=== PATIENT | female | born 1935 | race Caucasian/White ===

== ENCOUNTER → 2016-07-28 | Outpatient (CLI) | payer MEDICARE ==
[2016-07-28 10:19] LABS: HEMOGLOBIN 12.8 gm/dl (12.3-15.3); RED BLOOD COUNT 4.29 M/UL (4.00-5.10); WHITE BLOOD COUNT 6.6 K/UL (4.5-11.0)
[2016-07-28 10:40] LABS: BUN/CREATININE RATIO 21 (0-10)
== END ==
LOC: LAB 09:30
PROVIDERS: Internal Medicine
DX: R53.81 Other malaise (principal); R53.83 Other fatigue; E78.5 Hyperlipidemia, unspecified; I10 Essential (primary) hypertension; E55.9 Vitamin D deficiency, unspecified; M81.0 Age-related osteoporosis without current pathological fracture
CPT/HCPCS: 36415; 80053; 80061; 84439; 84443; 85027

== ENCOUNTER → 2016-11-22 | Outpatient (CLI) | payer MEDICARE | LOC: LAB 08:39 | DX: E78.5 Hyperlipidemia, unspecified (principal) | CPT/HCPCS: 36415; 80061 ==

== ENCOUNTER 2020-11-14 08:43 | Emergency (ER) | payer OTHER ==
[~2020-11-14 08:43] MED LIST: ALDACTONE25 MG PO; ASPIRIN CHEWABL81 MG PO; COREG6.25 MG PO; LIPITOR TAB 1010 MG PO; OMEPRAZOLE20 MG PO; PRINIVIL5 MG PO
[2020-11-14 09:56] LABS: HEMOGLOBIN 12.3 gm/dl (12.3-15.3); RED BLOOD COUNT 4.02 M/UL (4.00-5.10); WHITE BLOOD COUNT 7.5 K/UL (4.5-11.0)
[2020-11-14 10:18] LABS: BUN/CREATININE RATIO 23 (0-10)
[2020-11-14] MEDS ORDERED: ZITHROMAX250 MG PO (11:00)
== END 2020-11-14 11:16 | disposition home or self-care (01) ==
LOC: ER1 08:43
PROVIDERS: Physician Assistant
DX: I10 Essential (primary) hypertension (principal); R91.8 Other nonspecific abnormal finding of lung field; Z79.899 Other long term (current) drug therapy
CPT/HCPCS: 70450; 71045; 80053; 82550; 82553; 83874; 84484; 85025; 93005; 99284

== ENCOUNTER → 2021-01-19 | Outpatient (CLI) | payer OTHER ==
[~2021-01-19] MED LIST changes: +ZITHROMAX250 MG PO
== END ==
LOC: KOH-I 09:28
DX: R93.89 Abnormal findings on diagnostic imaging of other specified body structures (principal)
CPT/HCPCS: 71046

== ENCOUNTER → 2021-08-03 | Outpatient (CLI) | payer OTHER ==
[2021-08-04 11:16] LABS: CREATININE, URINE 52.6 mg/dL (Not Estab.); MICROALB/CREAT RATIO <6 (0-29)
== END ==
LOC: US 07-28 13:30
PROVIDERS: Internal Medicine Nephrology
DX: N18.32 Chronic kidney disease, stage 3b (principal); N13.30 Unspecified hydronephrosis
CPT/HCPCS: 36415; 80048; 81001; 82043; 82570

== ENCOUNTER → 2021-08-18 | Outpatient (CLI) | payer OTHER | LOC: KOH-I 08:00 | DX: N18.30 Chronic kidney disease, stage 3 unspecified (principal) | CPT/HCPCS: 74176 ==

== ENCOUNTER 2021-10-20 14:18 | Emergency (ER) | payer OTHER ==
[2021-10-20 15:56] LABS: HEMOGLOBIN 12.6 gm/dl (12.3-15.3); RED BLOOD COUNT 4.18 M/UL (4.00-5.10); WHITE BLOOD COUNT 9.3 K/UL (4.5-11.0)
== END 2021-10-20 20:25 | disposition home or self-care (01) ==
LOC: ER1 14:18
DX: I11.9 Hypertensive heart disease without heart failure (principal); E78.5 Hyperlipidemia, unspecified; I25.2 Old myocardial infarction; Z79.82 Long term (current) use of aspirin; Z79.899 Other long term (current) drug therapy
CPT/HCPCS: 80053; 81001; 82550; 82553; 84484; 85025; 93005; 99283

== ENCOUNTER → 2021-10-28 | Outpatient (CLI) | payer OTHER ==
[2021-10-29 10:18] LABS: CREATININE, URINE 86.1 mg/dL (Not Estab.)
== END ==
LOC: LAB 12:18
PROVIDERS: Internal Medicine Nephrology
DX: N18.31 Chronic kidney disease, stage 3a (principal)
CPT/HCPCS: 36415; 80048; 82043; 82570

== ENCOUNTER 2021-11-11 12:11 | Emergency (ER) | payer OTHER ==
[2021-11-11 12:59] LABS: HEMOGLOBIN 12.8 gm/dl (12.3-15.3); RED BLOOD COUNT 4.25 M/UL (4.00-5.10); WHITE BLOOD COUNT 6.8 K/UL (4.5-11.0)
[2021-11-11] MEDS ORDERED: DOXYCYCLINE MO100 MG PO (16:41)
== END 2021-11-11 17:21 | disposition home or self-care (01) ==
LOC: ER1 12:11
DX: I10 Essential (primary) hypertension (principal); R10.9 Unspecified abdominal pain; J18.9 Pneumonia, unspecified organism; Z79.899 Other long term (current) drug therapy
CPT/HCPCS: 71045; 80053; 82550; 82553; 84484; 85025; 93005; 99284